=== PATIENT | male | born 1990 | race African-American/Black ===

== ENCOUNTER 2017-01-17 07:48 | Outpatient (RCR) | payer OTHER | END 2017-01-23 | LOC: M ST 07:48 | PROVIDERS: ATTEND Physician Assistant | DX: Z51.89 Encounter for other specified aftercare (principal); F98.5 Adult onset fluency disorder ==

== ENCOUNTER 2017-02-14 10:00 | Outpatient (RCR) | payer OTHER | END 2017-02-23 | LOC: M ST 10:00 | PROVIDERS: ATTEND Physician Assistant | DX: Z51.89 Encounter for other specified aftercare (principal); F98.5 Adult onset fluency disorder ==

== ENCOUNTER 2017-03-23 10:00 | Outpatient (RCR) | payer OTHER | END 2017-03-25 | disposition home or self-care (01) | LOC: M ST 10:00 | PROVIDERS: ATTEND Physician Assistant | DX: Z51.89 Encounter for other specified aftercare (principal); F98.5 Adult onset fluency disorder ==

== ENCOUNTER 2017-08-24 09:47 | Outpatient (RCR) | payer OTHER | END 2017-08-25 | LOC: M ST 09:47 | PROVIDERS: ATTEND Student in an Organized Health Care Education/Training Program | DX: Z51.89 Encounter for other specified aftercare (principal); F80.81 Childhood onset fluency disorder ==

== ENCOUNTER 2017-08-31 09:49 | Outpatient (RCR) | payer OTHER | END 2017-09-25 | LOC: M ST 09:49 | DX: F80.81 Childhood onset fluency disorder (principal) | CPT/HCPCS: 92507 ==

== ENCOUNTER 2017-10-07 09:59 | Outpatient (RCR) | payer OTHER | END 2017-10-26 | disposition home or self-care (01) | LOC: M ST 09:59 | DX: Z51.89 Encounter for other specified aftercare (principal); F80.81 Childhood onset fluency disorder | CPT/HCPCS: 92507 ==

== ENCOUNTER 2017-11-25 08:34 | Outpatient (RCR) | payer OTHER | END 2017-12-24 | LOC: M ST 08:34 | DX: Z51.89 Encounter for other specified aftercare (principal); F80.81 Childhood onset fluency disorder | CPT/HCPCS: 92507 ==

== ENCOUNTER 2018-01-04 13:55 | Outpatient (RCR) | payer OTHER | END 2018-01-23 | LOC: M ST 13:55 | DX: Z51.89 Encounter for other specified aftercare (principal); F80.81 Childhood onset fluency disorder | CPT/HCPCS: 92507 ==

== ENCOUNTER 2018-07-30 11:30 | Emergency (ER) | payer OTHER ==
[2018-07-30] MEDS: methylPREDNISolone INJ 125 MG/2 ML VIAL (J2930) IM (13:33)
== END 2018-07-30 13:57 | disposition home or self-care (01) ==
LOC: M ED 11:30
DX: M54.31 Sciatica, right side (principal)
CPT/HCPCS: J2930